=== PATIENT | female | born 2000 | race Two or more races ===

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

== ENCOUNTER 2022-01-05 02:05 | Emergency (ER) | payer OTHER ==
[~2022-01-05] VITALS: Ht 157.5 cm; Wt 49.4 kg
== END 2022-01-05 14:55 | disposition home or self-care (01) ==
LOC: ER 02:05
DX: O20.8 Other hemorrhage in early pregnancy (principal); Z20.822 Contact with and (suspected) exposure to COVID-19

== ENCOUNTER 2023-06-20 21:14 | Inpatient (IN) | payer OTHER ==
[~2023-06-20] VITALS: Ht 157.5 cm; Wt 1.4 kg
[2023-06-20] MEDS ORDERED: PRENATAL TABLE1 EAC1 PO (21:21)
[2023-06-20 21:42] LABS: PH,URINE 6.5 (5.0-8.0); URINE APPEARANCE Clear; URINE BILIRRUBIN Negative (NEGATIVE); URINE BLOOD Negative; URINE COLOR Yellow; URINE GLUCOSE Negative (NEGATIVE); URINE LEUKOCYTE Trace; URINE NITRATE Negative; URINE PROTEIN Negative (NEGATIVE)
[2023-06-20 21:43] LABS: HEMATOCRIT 32.7 % (36.0-45.00); HEMOGLOBIN 11.4 g/dL (12.0-15.00); MEAN CELL VOLUME 89.8 fL (80.00-100.00); MEAN CORPUSCULAR HEMOGLOBIN 31.2 pg (27.00-32.0); MEAN CORPUSCULAR HGB CONC 34.7 g/dl (32.0-36.0); PLATELET COUNT 252 K/uL (150-450); RED BLOOD COUNT 3.64 M/uL (4.00-6.00); RED CELL DISTRIBUTION WIDTH 13.3 % (11.5-14.5); URINE WBC 15.1 uL (0.0-23.2)
[2023-06-24 19:46] LABS: ABG PH 7.338 (7.35-7.45); ABG pCO2 41.6 mmHg (35-45); BASE EXCESS -3.7 mmol/l; BICARBONATE 21.9 mmol/l (23-25); Tco2 23.1 mmol/l
[2023-06-24 23:30] LABS: ABG PO2 39.1 mmHg (80-100)
[2023-06-24 23:32] LABS: SaO2 69.1 %
== END 2023-06-27 17:03 | disposition home or self-care (01) | DRG 788 ==
LOC: OBS/DEL 21:14 → LDR 06-21 15:22 → O/R 06-24 18:02 → OB/GYN 06-24 20:22
PROVIDERS: ADMIT Obstetrics & Gynecology Obstetrics; ATTEND Obstetrics & Gynecology Obstetrics
PROC: 4A1HXCZ Monitoring of Products of Conception, Cardiac Rate, External Approach (ICD-10-PCS; 2023-06-21)
PROC: 10D00Z1 Extraction of Products of Conception, Low, Open Approach (ICD-10-PCS; principal; 2023-06-24 17:00)
DX: O60.14X0 Preterm labor third trimester with preterm delivery third trimester, not applicable or unspecified (principal); Z3A.34 34 weeks gestation of pregnancy; Z37.0 Single live birth; Z20.822 Contact with and (suspected) exposure to COVID-19